=== PATIENT | female | born 1980 | race Caucasian/White ===

== ENCOUNTER 2021-11-18 11:15 | Outpatient (CLI) | payer BC, SELFPAY ==
--- NOTE | 2021-11-18 11:15 | RT.EKG_ITS ---
APPROVED REPORT Exam: Resting ECG Reason for Exam: NPW baseline needed Patient Location: O HR:76 bpm ECG Measurements Heart Rate 76 AXIS TX 132 P 6 QRSd 83 QRS 24 QT 358 T 25 QTc 403 Conclusion Sinus rhythm...normal P axis, V-rate 50- 99 Normal Electrocardiogram
== END 2021-11-18 11:16 | disposition home or self-care (01) ==
LOC: DI.CARD 11:16
PROVIDERS: PCP Family Medicine; Visit Provider Internal Medicine Cardiovascular Disease
DX: E78.00 Pure hypercholesterolemia, unspecified (principal); Z82.49 Family history of ischemic heart disease and other diseases of the circulatory system; F17.210 Nicotine dependence, cigarettes, uncomplicated
CPT/HCPCS: 93010